=== PATIENT | male | born 1960 | race Caucasian/White ===

== ENCOUNTER 2023-01-02 08:45 | Outpatient (RCR) | payer BC, SELFPAY | END 2023-02-19 15:11 | disposition home or self-care (01) | PROVIDERS: PCP Student in an Organized Health Care Education/Training Program; Visit Provider Student in an Organized Health Care Education/Training Program | DX: G57.03 Lesion of sciatic nerve, bilateral lower limbs (principal); M25.559 Pain in unspecified hip; M62.81 Muscle weakness (generalized); Z51.89 Encounter for other specified aftercare | CPT/HCPCS: 97110; 97140; 97161 ==